=== PATIENT | male | born 1980 | race African-American/Black ===

== ENCOUNTER 2021-01-16 16:38 | Emergency (ER) | payer SELFPAY ==
[~2021-01-16] VITALS: Ht 154.9 cm; Wt 141.5 kg
[2021-01-16 16:41] VITALS: BP_SYST 138
[2021-01-16] MEDS ORDERED: LIDOCAINE 2%, 20 ML MDV INJ ONE (17:15)
[2021-01-16] MEDS ORDERED: ACETAMINOPHEN 500 MG TABLET PO ONE (17:15)
[2021-01-16 18:19] VITALS: BP_SYST 138
== END 2021-01-16 18:19 | disposition left against medical advice (07) ==
LOC: SED 16:38
DX: S05.41XA Penetrating wound of orbit with or without foreign body, right eye, initial encounter (principal); S09.90XA Unspecified injury of head, initial encounter; Y04.0XXA Assault by unarmed brawl or fight, initial encounter; Y93.89 Activity, other specified; Y92.89 Other specified places as the place of occurrence of the external cause; Y99.8 Other external cause status
CPT/HCPCS: 99283; J2001